=== PATIENT | male | born 1970 | race Caucasian/White ===

== ENCOUNTER 2021-02-11 11:41 | Emergency (ER) | payer OTHER ==
[~2021-02-11] VITALS: Ht 180.3 cm; Wt 136.1 kg
[~2021-02-11 11:41] MED LIST: ADVIL200 MG PO; ATENOLOL50 MG PO; CLONAZEPAM1 MG PO; CYCLOBENZAPRINE10 MG PO; GABAPENTIN300 MG PO; NAPROXEN500 MG PO; NORCO 5-325 TA1 EACH PO; NORCO 7.5-3251 EACH PO; OXYCODONE-ACET1 EAC3 PO
[2021-02-11] MEDS ORDERED: PRAZOSIN HCL5 MG PO (12:06)
[2021-02-11] MEDS ORDERED: ACETAMINOPHEN-1 EAC2 PO (12:07)
[2021-02-11] MEDS ORDERED: HYDROCHLOROTHIA25 MG PO (12:09)
[2021-02-11] MEDS ORDERED: AUGMENTIN 875-1 EACH PO (14:08)
[2021-02-11] MEDS ORDERED: PREDNISONE20 MG PO (14:08)
[2021-02-11] MEDS ORDERED: VENTOLIN HFA18 GM INH (14:08)
--- NOTE | 2021-02-12 18:55 | EKG ---
[facility] [address] [facility] [place] [address] Signed Sinus rhythm with 1st degree AV block Low voltage QRS Nonspecific T wave abnormality Abnormal ECG No previous ECGs available Confirmed by BETZAIDA GOOD MD ([id number]) on 02/12/2021 6:55:00 PM Electronically Signed By: BETZAIDA GOOD MD 02/12/21 1855 PATIENT NAME: KEY MAI Electrocardiogram DATE OF : 66 PHYSICIAN: BETZAIDA GOOD MD REPORT #: [id number] REPORT IS CONFIDENTIAL AND NOT TO BE RELEASED WITHOUT AUTHORIZATION
== END 2021-02-11 15:03 | disposition home or self-care (01) ==
LOC: ED 11:41
DX: J40 Bronchitis, not specified as acute or chronic (principal); K04.7 Periapical abscess without sinus; Z20.822 Contact with and (suspected) exposure to COVID-19; Z79.899 Other long term (current) drug therapy
CPT/HCPCS: 71045; 80053; 81001; 83605; 85025; 93005; 93010; 99284-25; C9803; J1100; J7030; U0003

== ENCOUNTER 2021-04-06 14:54 | Emergency (ER) | payer OTHER ==
[~2021-04-06] VITALS: Ht 180.3 cm; Wt 137.4 kg
[~2021-04-06 14:54] MED LIST changes: +ACETAMINOPHEN-1 EAC2 PO; +AUGMENTIN 875-1 EACH PO; +HYDROCHLOROTHIA25 MG PO; +PRAZOSIN HCL5 MG PO; +PREDNISONE20 MG PO; +VENTOLIN HFA18 GM INH
--- OUTSIDE RECORDS SUMMARY | 2021-04-06 14:58 | XMS ---
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 Chavo has no Care Guidelines for this patient. [place] VISIT COUNT (12 MO.) 2 [facility] TOTAL 2 NOTE: Visits indicate total known visits. ED/C VISIT TRACKING (12 MO.) 04/06/2021 14:55 [facility] [place] TYPE: Emergency COMPLAINT: - L RIBCAGE BULGE, SWOLLEN STOMACHE 02/11/2021 11:[address] [facility] [place] TYPE: Emergency COMPLAINT: - FEVER, VOMITING, MEMORY LOSS, WEAK DIAGNOSES: - Fever, unspecified - Periapical abscess without sinus - Other group home (current) drug therapy - Bronchitis, not specified as acute or chronic INPATIENT VISIT TRACKING (12 MO.) No inpatient visits to display in this time frame [email or web address]
[2021-04-06] MEDS ORDERED: ONDANSETRON ODT8 MG PO (19:27)
== END 2021-04-06 19:33 | disposition home or self-care (01) ==
LOC: ED 14:54
DX: R10.12 Left upper quadrant pain (principal); E66.9 Obesity, unspecified; Z79.899 Other long term (current) drug therapy
CPT/HCPCS: 74177; 80053; 81001; 83690; 85025; 96375; 99284-25; J2060; J2405; J7030; Q9967

== ENCOUNTER 2021-07-14 12:03 | Emergency (ER) | payer OTHER ==
[~2021-07-14] VITALS: Ht 180.3 cm; Wt 138.8 kg
[~2021-07-14 12:03] MED LIST changes: +ONDANSETRON ODT8 MG PO
--- OUTSIDE RECORDS SUMMARY | 2021-07-14 12:06 | XMS ---
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 [place] VISIT COUNT (12 MO.) 3 [facility] TOTAL 3 NOTE: Visits indicate total known visits. ED/C VISIT TRACKING (12 MO.) 07/14/2021 12:04 [facility] TYPE: Emergency COMPLAINT: - FACIAL LACERATION INJURY 04/06/2021 14:55 [facility] TYPE: Emergency COMPLAINT: - L RIBCAGE BULGE, SWOLLEN STOMACHE DIAGNOSES: - Other terminal gauger (current) drug therapy - Obesity, unspecified - Fever, unspecified - Left upper quadrant pain 02/11/2021 11:42 [facility] TYPE: Emergency COMPLAINT: - FEVER, VOMITING, MEMORY LOSS, WEAK DIAGNOSES: - Fever, unspecified - Contact with and (suspected) exposure to COVID-19 - Periapical abscess without sinus - Other terminal gauger (current) drug therapy - Bronchitis, not specified as acute or chronic INPATIENT VISIT TRACKING (12 MO.) No inpatient visits to display in this time frame [email or web address]
== END 2021-07-14 15:15 | disposition home or self-care (01) ==
LOC: ED 12:03
DX: S01.112A Laceration without foreign body of left eyelid and periocular area, initial encounter (principal); H53.8 Other visual disturbances; Z79.899 Other long term (current) drug therapy; W26.0XXA Contact with knife, initial encounter
CPT/HCPCS: 12011; 36415; 70450; 70486; 80053; 82150; 82553; 83605; 83690; 85025; 99284-25; G0480

== ENCOUNTER 2024-03-15 11:12 | Emergency (ER) | payer OTHER ==
[~2024-03-15] VITALS: Ht 180.3 cm; Wt 126.6 kg
[~2024-03-15 11:12] MED LIST changes: +K-TAB ER20 MEQ PO; +PRAVASTATIN SOD20 MG PO
[2024-03-15] MEDS ORDERED: HYDROXYZINE HCL50 MG PO (11:33)
[2024-03-15] MEDS ORDERED: SERTRALINE HCL100 MG PO (11:35)
[2024-03-15] MEDS ORDERED: ALBUTEROL2.5 MG/3 M INH (11:35)
[2024-03-15] MEDS ORDERED: PRAZOSIN HCL2 MG PO (11:35)
[2024-03-15] MEDS ORDERED: GABAPENTIN800 MG PO (11:36)
[2024-03-15] MEDS ORDERED: PREDNISONE20 MG PO (11:36)
[2024-03-15] MEDS ORDERED: SUMATRIPTAN SUC50 MG PO (11:37)
[2024-03-15] MEDS ORDERED: VITAMIN D310 MC4 PO (11:38)
[2024-03-15 12:00] LABS: BASOPHILS 0.4 % (0-2); HEMATOCRIT 47.6 % (35.0-50.0); HEMOGLOBIN 16.8 g/dL (12.0-18.0); LYMPHOCYTES 19.4 % (24-44); MCH 33.8 (27-36); MCHC 35.2 g/dl (30-36); MCV 96.1 fl (81-99); MONOCYTES 6.8 % (0-12); NEUTROPHILS 71.4 % (39-80); PLATELET COUNT 238 K/uL (140-440); RBC 4.95 M/ul (4.3-5.7); RDW 13.4 (10.5-15.0)
[2024-03-15] MEDS ORDERED: SODIUM CHLORIDE 0.9% 1,000 ML IV ONE (12:00)
[2024-03-15] MEDS ORDERED: ondansetron HCL 4 MG/2 ML VIAL IV ONE (12:00)
[2024-03-15] MEDS ORDERED: methylPREDNISolone SOD SUCC 125 MG/2 ML VIAL IV ONE (12:00)
[2024-03-15] MEDS ORDERED: PANTOPRAZOLE SODIUM 40 MG/10 ML VIAL IV ONE (12:00)
[2024-03-15] MEDS ORDERED: ALBUTEROL/IPRATROPIUM 3 ML NEB INH ONE (12:00)
[2024-03-15] MEDS ORDERED: HYDROmorphone HCL 1 MG/ML SYR IV ONE (12:00)
[2024-03-15 12:10] LABS: ALBUMIN 3.1 g/dL (3.4-5.0); ALBUMIN/GLOBULIN RATIO 0.91 (1.1-2.4); ANION GAP 11.5 (7-21); BILIRUBIN, TOTAL 0.7 ng/dL (0.2-1.0); BUN/CREATININE RATIO 18.44 (6.0-28.6); CALCIUM 7.9 mg/dL (8.5-10.1); CREATININE, SERUM 1.03 mg/dL (0.70-1.30); POTASSIUM 3.5 mmol/L (3.5-5.1); PROTEIN, TOTAL 6.5 g/dL (6.4-8.2)
[2024-03-15] MEDS ORDERED: ONDANSETRON ODT4 MG SL (13:58)
[2024-03-15 14:07] VITALS: BP 114/72
[2024-03-15 14:33] LABS: INFLUENZA B NAA NEGATIVE (NEGATIVE); RESPIRATORY SYNCYTIAL VIR NAA NEGATIVE (NEGATIVE)
== END 2024-03-15 14:07 | disposition home or self-care (01) ==
LOC: ED 11:12
PROVIDERS: Emergency Medicine
DX: R53.1 Weakness (principal); R11.2 Nausea with vomiting, unspecified; J06.9 Acute upper respiratory infection, unspecified; Z79.899 Other long term (current) drug therapy
CPT/HCPCS: 36415; 71045; 74176; 80053; 83690; 85025; 87502; 96374; 96375; 99285-25; J1171; J2405; J2470; J2919; J7030; U0002

== ENCOUNTER 2024-08-15 14:49 | Emergency (ER) | payer OTHER ==
[~2024-08-15] VITALS: Ht 180.3 cm; Wt 128.4 kg
[~2024-08-15 14:49] MED LIST changes: +ALBUTEROL2.5 MG/3 M INH; +GABAPENTIN800 MG PO; +HYDROXYZINE HCL50 MG PO; +ONDANSETRON ODT4 MG SL; +PRAZOSIN HCL2 MG PO; +SERTRALINE HCL100 MG PO; +SUMATRIPTAN SUC50 MG PO; +VITAMIN D310 MC4 PO
[2024-08-15 16:48] VITALS: BP 113/76
--- NOTE | 2024-08-17 09:04 | EKG ---
[facility] [address] [facility] [place] [address] Signed Sinus rhythm with 1st degree AV block Left axis deviation Abnormal ECG When compared with ECG of 05-JUL-2023 13:44, Vent. rate has decreased BY 36 BPM Criteria for Inferior infarct are no longer present Confirmed by Gaye Eckert MD ([id number]) on 08/17/2024 9:04:35 AM Electronically Signed By: GAYE ECKERT MD 08/17/24 0904 PATIENT NAME: KEY MAI Electrocardiogram DATE OF : 66 PHYSICIAN: GAYE ECKERT MD REPORT #: [id number] REPORT IS CONFIDENTIAL AND NOT TO BE RELEASED WITHOUT AUTHORIZATION
== END 2024-08-15 17:22 | disposition home or self-care (01) ==
LOC: ED 14:49
DX: S09.90XA Unspecified injury of head, initial encounter (principal); H61.23 Impacted cerumen, bilateral; W01.0XXA Fall on same level from slipping, tripping and stumbling without subsequent striking against object, initial encounter; Y92.002 Bathroom of unspecified non-institutional (private) residence as the place of occurrence of the external cause
CPT/HCPCS: 69209; 70450; 93005; 93010; 99284-25